=== PATIENT | female | born 1940 | race Caucasian/White ===

== ENCOUNTER → 2017-03-10 | Outpatient (CLI) | payer OTHER ==
[~2017-03-10] MED LIST: ASPI325; ATOR40TA; ENOX100I; HYDACE5325 PO; LEVSOD25; LIOT5; METO50; MOMENI; NIAC500ER; NITR.4SL; OXYB5; PANT40; PRAM.125; RAMI5; TORSE20; TRAM50; ZOLP5
== END | disposition home or self-care (01) ==
LOC: LAB 11:30
DX: N39.0 Urinary tract infection, site not specified (principal)
CPT/HCPCS: 87077; 87086; 87186

== ENCOUNTER 2018-04-15 18:42 | Observation (INO) | payer OTHER ==
[~2018-04-15] VITALS: Ht 177.8 cm; Wt 107.6 kg
[~2018-04-15 18:42] MED LIST changes: -**INCOMPLETE MED REC; -ALBU90OI61 INH; -ALLO100 PO; -AMLO5 PO; -ASPI81CH PO; -EZET10 PO; -Flovent 44 mc10.6 GM INH; -GEMF600 PO; -METO50ER PO; -NITR100CA PO; -Ropinirole HCl4 MG PO; -SYNTHROID112 MCG PO; -TOLT4 PO; -XARELTO20 MG PO
[2018-04-15 19:36] LABS: BASOPHILS ABSOLUTE AUTO 0.01 K/mm3 (0.00-0.23); BASOPHILS PERCENT AUTO 0 % (0-2); EOSINOPHILS ABSOLUTE AUTO 0.02 K/mm3 (0.00-0.68); EOSINOPHILS PERCENT AUTO 0 % (0-6); Hematocrit 39.8 % (33.0-51.0); Hemoglobin 13.5 g/dL (11.5-16.0); IMMATURE GRAN ABSOLUTE AUTO 0.02 K/mm3 (0.00-0.10); IMMATURE GRAN PERCENT AUTO 0 % (0-1); LYMPHOCYTES PERCENT AUTO 11 % (21-46); MONOCYTES ABSOLUTE AUTO 1.11 K/mm3 (0.16-1.47); MONOCYTES PERCENT AUTO 14 % (4-13); Mean Corpuscular HGB 30.9 pg (26.0-34.0); Mean Corpuscular HGB Conc 33.9 g/dL (31.5-36.5); Mean Corpuscular Volume 91 fL (80-100); Mean Platelet Volume 10.3 fL (9.1-12.4); NEUTROPHILS ABSOLUTE AUTO 6.08 K/mm3 (1.96-9.15); NEUTROPHILS PERCENT AUTO 75 % (41-73); Platelet Count 194 K/mm3 (150-400); RDW Coefficient Variation 13.6 % (11.7-14.2); Red Blood Cell Count 4.37 M/mm3 (3.80-5.20); White Blood Cell Count 8.14 K/mm3 (4.00-11.30)
[2018-04-15 20:02] LABS: Albumin, Blood 2.6 g/dL (3.4-5.0); Albumin/Globulin Ratio 0.5 (0.8-1.8); Bilirubin, Total 0.6 mg/dL (0.1-1.0); Bun/Creatinine Ratio 26.9 (12.0-20.0); Creatinine, Blood 1.19 mg/dL (0.40-1.00); Globulin, Blood 5.2 g/dL (2.2-4.0); Potassium, Blood 3.6 mmol/L (3.5-5.5); Total Protein, Blood 7.8 g/dL (6.4-8.2); Troponin I 0.025 ng/mL (0.000-0.040)
[2018-04-15 20:12] LABS: Free Thyroxine 1.61 ng/dL (0.70-1.60)
[2018-04-15 20:15] LABS: Thyroid Stimulating Hormone 0.289 uIU/mL (0.360-4.800); Triiodothyronine, Free 1.19 pg/mL (2.18-3.98)
[2018-04-15 20:57] LABS: Influenza A Negative (NEGATIVE); Influenza B Negative (NEGATIVE)
[2018-04-15 21:06] LABS: Source, Urine Clean Catch
[2018-04-15 21:11] LABS: Blood, Urine 4+ (Neg); Glucose Qualitative, Urine Neg (Neg); Ketones, Urine 1+ (Neg); Leukocyte Esterase, Urine 3+ (Neg); Nitrite, Urine Neg (Neg); Protein, Urine 3+ (Neg); Urobilinogen, Urine 2+ (Normal); pH, Urine 6.5 (5.0-8.0)
[2018-04-15 21:16] LABS: Appearance, Urine Hazy (Clear); Bilirubin, Urine 1+ (Neg); Color, Urine Amber (P-Yellow)
[2018-04-15 21:22] LABS: Bacteria Many /hpf; Red Blood Cells, Urine 0-2 /hpf (0-2); Squamous Epithelial Cells Rare /hpf (Few); White Blood Cells, Urine TNTC /hpf (0-5)
[2018-04-15] MEDS ORDERED: **INCOMPLETE MED REC (21:56)
[2018-04-15] MEDS ORDERED: AMLO5 PO ×2 (22:16)
[2018-04-15] MEDS ORDERED: GEMF600 PO ×2 (22:17)
[2018-04-15] MEDS ORDERED: Ropinirole HCl4 MG PO ×2 (22:19)
[2018-04-15] MEDS ORDERED: EZET10 PO ×2 (22:20)
[2018-04-15] MEDS ORDERED: SYNTHROID112 MCG PO ×2 (22:21)
[2018-04-15] MEDS ORDERED: METO50ER PO ×2 (22:24)
[2018-04-15] MEDS ORDERED: TOLT4 PO ×2 (22:25)
[2018-04-15] MEDS ORDERED: ALLO100 PO ×2 (22:29)
[2018-04-15] MEDS ORDERED: Flovent 44 mc10.6 GM INH ×2 (22:31)
[2018-04-15] MEDS ORDERED: ALBU90OI61 INH ×2 (22:32)
[2018-04-15] MEDS ORDERED: ASPI81CH PO ×2 (22:33)
[2018-04-16 04:10] LABS: BASOPHILS ABSOLUTE AUTO 0.02 K/mm3 (0.00-0.23); BASOPHILS PERCENT AUTO 0 % (0-2); EOSINOPHILS ABSOLUTE AUTO 0.06 K/mm3 (0.00-0.68); EOSINOPHILS PERCENT AUTO 1 % (0-6); Hematocrit 39.2 % (33.0-51.0); Hemoglobin 12.7 g/dL (11.5-16.0); IMMATURE GRAN ABSOLUTE AUTO 0.02 K/mm3 (0.00-0.10); IMMATURE GRAN PERCENT AUTO 0 % (0-1); LYMPHOCYTES ABSOLUTE AUTO 0.99 K/mm3 (0.84-5.20); LYMPHOCYTES PERCENT AUTO 15 % (21-46); MONOCYTES ABSOLUTE AUTO 0.92 K/mm3 (0.16-1.47); MONOCYTES PERCENT AUTO 14 % (4-13); Mean Corpuscular HGB 30.3 pg (26.0-34.0); Mean Corpuscular HGB Conc 32.4 g/dL (31.5-36.5); Mean Platelet Volume 10.2 fL (9.1-12.4); NEUTROPHILS ABSOLUTE AUTO 4.44 K/mm3 (1.96-9.15); NEUTROPHILS PERCENT AUTO 69 % (41-73); Platelet Count 165 K/mm3 (150-400); RDW Coefficient Variation 13.7 % (11.7-14.2); RDW Standard Deviation 47.1 fL (35.1-46.3); Red Blood Cell Count 4.19 M/mm3 (3.80-5.20); White Blood Cell Count 6.45 K/mm3 (4.00-11.30)
[2018-04-16 04:12] LABS: Mean Corpuscular Volume 94 fL (80-100)
[2018-04-16 04:24] LABS: Bun/Creatinine Ratio 27.9 (12.0-20.0); Calcium, Blood 8.7 mg/dL (8.5-10.1); Creatinine, Blood 1.04 mg/dL (0.40-1.00); Potassium, Blood 3.4 mmol/L (3.5-5.5)
--- NOTE | 2018-04-16 07:35 | NUR ---
SHIFT SUMMARY PATIENT ADMITTED EARLIER THIS SHIFT. PATIENT VERY PLEASENT AND CHEERFUL. PATIENT ABLE TO TRANSFER SELF FROM THE GURNEY TO THE BED WITH SBA. PATIENT STATES SHE IS FEELING "BETTER" THAN SHE WAS EARLIER. PATIENT ABLE TO AMBULATE TO THE BATHROOM WTIH SBA. IV FLUIDS RUNNING PER ORDRES. PATIENT STATED THAT SHE WAS ABLE TO SLEEP WELL FOR "SEVERAL HOURS" AFTER ADMIT. PATIENT CURRENTLY SITTING UP IN BED WATCHING TV. VITAL SIGNS CHARTED. REPORT GIVEN TO ONCOMING RN.
--- NOTE | 2018-04-16 08:00 | NUR ---
pt laying in bed, assisted up to bathroom she is pretty indep, steady on her feet, a/ox3, pelasant and cooperative with care, follows commands well, denies pain, or sob, states she is feeling better, lungs are clear t/o, resp even and unlabored, no cough noted or reported, is currently on r/a, hrirr, tele in place running afib in the low 100's, no edema noted, ppp+1, cap refill <3sec, vs stable, afebrile, iv site is clear and patent, btx4, abd round soft nontender, voids without diff, skin c/w/d, maew, marce, call light in reach.
--- NOTE | 2018-04-16 12:05 | NUR ---
Echocardiogram performed.
--- NOTE | 2018-04-16 12:39 | NUR ---
pt visiting on the phone, doing ok, no complaints. call light in reach.
[2018-04-16] MEDS ORDERED: XARELTO20 MG PO ×2 (14:12)
[2018-04-16] MEDS ORDERED: NITR100CA PO ×2 (14:13)
--- NOTE | 2018-04-16 15:45 | NUR ---
pt has been discharged to home, went over medications with her, she verbalized understanding, new medications were called to her pharmacy, iv removed intact, she has all her belongings, left via wheelchair with guide rail cleaner in attendence.
== END 2018-04-16 15:44 | disposition home or self-care (01) ==
LOC: ER 18:42 → PCU 18:43 → ER 22:31 → PCU 04-16 00:47
PROVIDERS: Emergency Medicine; Nurse Practitioner Acute Care; Physician Assistant; ADMIT Internal Medicine
DX: I48.91 Unspecified atrial fibrillation (principal); N17.9 Acute kidney failure, unspecified; N39.0 Urinary tract infection, site not specified; R42 Dizziness and giddiness; I10 Essential (primary) hypertension; J45.20 Mild intermittent asthma, uncomplicated; E89.0 Postprocedural hypothyroidism; G25.81 Restless legs syndrome; E78.5 Hyperlipidemia, unspecified; Z88.1 Allergy status to other antibiotic agents; Z88.5 Allergy status to narcotic agent; Z88.0 Allergy status to penicillin; Z88.8 Allergy status to other drugs, medicaments and biological substances; Z79.899 Other long term (current) drug therapy; Z90.89 Acquired absence of other organs; Z90.49 Acquired absence of other specified parts of digestive tract
CPT/HCPCS: 36415; 71045; 80048; 80053; 81001; 84145; 84439; 84443; 84481; 84484; 85025; 87077; 87086; 87186; 87804; 93005; 93010; 93306; 94640; 94760; 96361; 96365; 96375; 99284-25; J1956; J7030; J7040

== ENCOUNTER → 2018-04-15 | Outpatient (CLI) | payer OTHER ==
[~2018-04-15] MED LIST changes: +**INCOMPLETE MED REC; +ALBU90OI61 INH; +ALLO100 PO; +AMLO5 PO; -ASPI325; +ASPI325 PO; +ASPI81CH PO; +EZET10 PO; +Flovent 44 mc10.6 GM INH; +GEMF600 PO; -METO50; +METO50 PO; +METO50ER PO; +NITR100CA PO; +Ropinirole HCl4 MG PO; +SYNTHROID112 MCG PO; +TOLT4 PO; +XARELTO20 MG PO
== END | disposition home or self-care (01) ==
LOC: LAB EV 18:30 → LAB SHORT 18:30
DX: R30.0 Dysuria (principal)
CPT/HCPCS: 87077; 87086; 87186

== ENCOUNTER 2018-04-19 15:24 | Emergency (ER) | payer OTHER ==
[~2018-04-19] VITALS: Ht 177.8 cm; Wt 110.7 kg
[~2018-04-19 15:24] MED LIST changes: +**INCOMPLETE MED REC; +ALBU90OI61 INH; +ALLO100 PO; +AMLO5 PO; +ASPI81CH PO; +EZET10 PO; +Flovent 44 mc10.6 GM INH; +GEMF600 PO; +METO50ER PO; +NITR100CA PO; +Ropinirole HCl4 MG PO; +SYNTHROID112 MCG PO; +TOLT4 PO; +XARELTO20 MG PO
[2018-04-19 16:02] LABS: BASOPHILS ABSOLUTE AUTO 0.02 K/mm3 (0.00-0.23); BASOPHILS PERCENT AUTO 0 % (0-2); EOSINOPHILS ABSOLUTE AUTO 0.14 K/mm3 (0.00-0.68); EOSINOPHILS PERCENT AUTO 2 % (0-6); Hematocrit 36.9 % (33.0-51.0); Hemoglobin 12.1 g/dL (11.5-16.0); IMMATURE GRAN ABSOLUTE AUTO 0.07 K/mm3 (0.00-0.10); IMMATURE GRAN PERCENT AUTO 1 % (0-1); LYMPHOCYTES ABSOLUTE AUTO 1.58 K/mm3 (0.84-5.20); LYMPHOCYTES PERCENT AUTO 26 % (21-46); MONOCYTES ABSOLUTE AUTO 0.45 K/mm3 (0.16-1.47); MONOCYTES PERCENT AUTO 7 % (4-13); Mean Corpuscular HGB 30.9 pg (26.0-34.0); Mean Corpuscular HGB Conc 32.8 g/dL (31.5-36.5); Mean Corpuscular Volume 94 fL (80-100); Mean Platelet Volume 9.7 fL (9.1-12.4); NEUTROPHILS ABSOLUTE AUTO 3.86 K/mm3 (1.96-9.15); NEUTROPHILS PERCENT AUTO 63 % (41-73); Platelet Count 311 K/mm3 (150-400); RDW Standard Deviation 47.8 fL (35.1-46.3); Red Blood Cell Count 3.92 M/mm3 (3.80-5.20); White Blood Cell Count 6.12 K/mm3 (4.00-11.30)
[2018-04-19 16:27] LABS: Alanine Aminotransfer (ALT/SGP 23 U/L (12-78); Albumin, Blood 2.8 g/dL (3.4-5.0); Albumin/Globulin Ratio 0.6 (0.8-1.8); Alk Phos 88 U/L (50-136); Anion Gap 9 mmol/L (6-16); Aspartate Aminotrans (AST/SGOT 26 U/L (12-37); Bilirubin, Total 0.5 mg/dL (0.1-1.0); Blood Urea Nitrogen 12 mg/dL (8-24); Bun/Creatinine Ratio 13.1 (12.0-20.0); CO2, Blood 24 mmol/L (21-32); Calcium, Blood 9.2 mg/dL (8.5-10.1); Chloride, Blood 105 mmol/L (98-108); Creatinine, Blood 0.92 mg/dL (0.40-1.00); Globulin, Blood 4.9 g/dL (2.2-4.0); Glomerular Filtration Rate >60 (60-); Glucose, Blood 129 mg/dL (70-99); Potassium, Blood 3.6 mmol/L (3.5-5.5); Sodium, Blood 138 mmol/L (136-145); Total Protein, Blood 7.7 g/dL (6.4-8.2); Troponin I <0.015 ng/mL (0.000-0.040)
== END 2018-04-19 17:44 | disposition home or self-care (01) ==
LOC: ER 15:24
PROVIDERS: Physician Assistant
DX: I48.91 Unspecified atrial fibrillation (principal); J44.9 Chronic obstructive pulmonary disease, unspecified; Z79.899 Other long term (current) drug therapy; Z79.891 Long term (current) use of opiate analgesic; Z79.82 Long term (current) use of aspirin
CPT/HCPCS: 36415; 71046; 80053; 83880; 84484; 85025; 93005; 93010; 99285-25